=== PATIENT | male | born 2000 | race African-American/Black ===

== ENCOUNTER 2022-12-30 00:13 | Emergency (ER) | payer SELFPAY ==
[2022-12-30 00:26] VITALS: BP 123/82; PULSE 77; RESP 18; TEMP 98.7; BMI 25.3
[2022-12-30] MEDS ORDERED: ACETAMINOPHEN 325 MG TABLET (FP) PO ONE (01:14)
[2022-12-30] MEDS ORDERED: ACETAMINOPHEN 325 MG TABLET (FP) ONE (01:21)
[2022-12-30] MEDS: ALBUTEROL SO4 2.5/IPRATROPIUM 0.5 INH SOL 3 ML VIAL.NEB. NEB SCH ×4 (01:33→01:57)
== END 2022-12-30 01:57 | disposition home or self-care (01) ==
LOC: JER 00:13
PROC: 3E0F7GC Introduction of Other Therapeutic Substance into Respiratory Tract, Via Natural or Artificial Opening (ICD-10-PCS; principal; 2022-12-30)
DX: R06.02 Shortness of breath (principal); R07.89 Other chest pain; M79.10 Myalgia, unspecified site; J34.89 Other specified disorders of nose and nasal sinuses; U07.1 COVID-19; J45.909 Unspecified asthma, uncomplicated
CPT/HCPCS: 0241U-QW; 99284-25